=== PATIENT | female | born 1990 | race Caucasian/White ===

== ENCOUNTER 2023-08-06 13:56 | Emergency (ER) | payer BC, SELFPAY ==
[2023-08-06 14:29] VITALS: BP 126/69; PULSE 82; RESP 18; TEMP 36.8; O2SAT 99
--- NOTE | 2023-08-06 14:34 | ED.EAR ---
HPI - Ear Problem General Chief complaint: Ear Stated complaint: rt earache Time Seen by Provider: 08/06/23 14:34 Source: patient Mode of arrival: ambulatory Limitations: no limitations History of Present Illness HPI Narrative: 32-year-old female presents with complaint of right ear pain for 1 week. Afebrile. No hearing changes. All systems reviewed and negative except as noted above. Related Data Allergies Allergy/AdvReac Type Severity Reaction Status Date / Time Penicillins Allergy Unknown Hives Verified 08/06/23 14:31 Review of Systems Review of Systems: CONSTITUTIONAL: Denies fever, chills, or sweats. EYES: Denies visual changes, redness, or discharge. ENT: Denies rhinorrhea, congestion, sore throat . Reports right ear pain. CARDIOVASCULAR: Denies chest pain, palpitations, or edema. RESPIRATORY: Denies cough or dyspnea. GASTROINTESTINAL: Denies abdominal pain, nausea, vomiting, or diarrhea. GENITOURINARY: Denies dysuria or hematuria. SKIN: Denies rash or itching. MUSCULOSKELETAL: Denies back pain, joint pain, or myalgia. NEUROLOGIC: Denies headache, numbness, or weakness. PSYCHIATRIC: Denies anxiety or depression. All other systems reviewed are negative, except as documented in HPI. PMFSH Social History Social History Second hand tobacco smoke exposure: Yes Alcohol intake: never Comments At time of signature, agree with nursing past medical, surgical, social and family history. There is no relevant family history pertinent to the presenting complaint. Exam Narrative: GENERAL: This is a well-nourished, well-developed patient, in no apparent distress. HEAD: normocephalic, atraumatic. EYES: PERRL. Sclera clear/white. Vision is grossly intact. EARS: External ears normal, auditory canals clear and without drainage, fluid bilateral TMs with dull light reflex. Possible effusion versus perforation to right TM. Hearing grossly intact. NOSE: External nose normal with no obvious nasal discharge, nares without redness, no rhinorrhea. NECK: Neck supple, non-tender without lymphadenopathy, masses or thyromegaly. CARDIOVASCULAR: Regular rate and rhythm without murmurs, gallops, or rubs. RESPIRATORY: Clear to auscultation. Breath sounds equal bilaterally. No wheezes, rales, or rhonchi. SKIN: warm, Dry, intact with no suspicious lesions or rash, good texture and turgor. NEURO: awake, alert, and oriented to person, place and time. There were no obvious focal neurologic abnormalities. EXTREMITIES: No joint tenderness, effusion, or edema noted. Course Course Level of Care: Express Care Visit Vital Signs Vital signs: Vital Signs Temperature 36.8 C 08/06/23 14:29 Pulse Rate 82 08/06/23 14:29 Respiratory Rate 18 08/06/23 14:29 Blood Pressure 126/69 08/06/23 14:29 Pulse Oximetry 99 08/06/23 14:29 Oxygen Delivery Room Air 08/06/23 14:29 Temperature 36.8 C 08/06/23 14:29 Pulse Rate 82 08/06/23 14:29 Respiratory Rate 18 08/06/23 14:29 Blood Pressure 126/69 08/06/23 14:29 Pulse Oximetry 99 08/06/23 14:29 Oxygen Delivery Room Air 08/06/23 14:29 Reviewed Medical Decision Making MDM Narrative Medical decision making narrative: possible effusion 1st perforation to right TM. Will treat with antibiotics, antihistamine and Flonase. Effusion more likely due to no bloody drainage or hearing changes to right ear. Recommend follow-up with primary care physician To re-evaluate. Patient is aware of diagnosis, understands and agrees to treatment plan. Anticipatory guidance given. Patient agrees to follow-up as directed and is aware of reasons to seek care at the emergency department. Portions of this record may have been created with voice recognition software Vital Signs Vital Signs: Vital Signs Temperature 36.8 C 08/06/23 14:29 Pulse Rate 82 08/06/23 14:29 Respiratory Rate 18 08/06/23 14:29 Blood Pressure 126/69 08/06/23 14:29 Puls
== END 2023-08-06 14:48 | disposition home or self-care (01) ==
PROVIDERS: Emergency Provider Nurse Practitioner Family; PCP Physician Assistant
DX: H65.191 Other acute nonsuppurative otitis media, right ear (principal)
CPT/HCPCS: 99213; G0463